=== PATIENT | female | born 1945 | race African-American/Black ===

== ENCOUNTER 2017-05-02 11:06 | Inpatient (IN) | payer BC, MEDICAID ==
[~2017-05-02] VITALS: Ht 165.1 cm; Wt 59.9 kg
[~2017-05-02 11:06] MED LIST: DONEPEZIL; FURO-152; HYDR-519
[2017-05-02] MEDS ORDERED: ACETAMINOPHEN 650MG SUPP PR STA (11:25)
[2017-05-02] MEDS ORDERED: SODIUM CHLORIDE 0.9% 1000ML BAG (SEPSIS BOLUS) IV ONE (11:30)
[2017-05-02 11:57] LABS: BASOPHILS % 0.2 % (0.0-2.0); EOSINOPHILS % 0.1 % (0.0-5.0); HEMOGLOBIN. 15.7 g/dL (12.0-16.0); LYMPHOCYTES % 10.5 % (20.0-50.0); MEAN CORPUSCULAR HEMOGLOBIN 33.6 pg (28.0-32.0); MEAN CORPUSCULAR VOLUME 100.5 fL (81.0-99.0); MONOCYTES % 11.4 % (2.0-8.0); NEUTROPHILS % 77.8 % (40.0-76.0); PLATELET 266 x1000/uL (130-400); RED BLOOD CELL COUNT 4.67 mill/uL (4.2-5.4); RED CELL DISTRIBUTION WIDTH 14.1 % (11.6-14.6)
[2017-05-02 12:12] LABS: INR 1.2; PROTHROMBIN TIME 12.4 sec (9.4-11.6)
[2017-05-02 12:14] LABS: CARBON DIOXIDE 23 mEq/L (21-32); CHLORIDE 109 mEq/L (98-107); TROPONIN I < 0.02 ng/mL (0.00-0.04)
[2017-05-02] MEDS ORDERED: PIPERACILLIN/TAZ 3.375G PREMIX 50 ML IV ONE (12:30)
[2017-05-02 13:04] LABS: GLUCOSE URINE NEGATIVE (NEGATIVE); KETONES URINE NEGATIVE (NEGATIVE); LEUKOCYTE ESTERASE URINE 3+ (NEGATIVE); NITRITE URINE NEGATIVE (NEGATIVE); OCCULT BLOOD URINE 3+ (NEGATIVE); PH URINE 5.5 (4.5-8.0); PROTEIN URINE 1+ (NEGATIVE); SPECIFIC GRAVITY URINE 1.022 (1.005-1.030)
[2017-05-02 13:05] LABS: CLARITY URINE TURBID (CLEAR); COLOR URINE DARK YELLOW (YELLOW)
[2017-05-02] MEDS ORDERED: CLONIDINE 0.1MG TABLET PO PRN (14:30)
[2017-05-02] MEDS ORDERED: CEFTRIAXONE 1 G PREMIX 50 ML IV SCH ×2 (14:30→21:00)
[2017-05-02] MEDS ORDERED: ACETAMINOPHEN 325MG TABLET PO PRN (14:30)
[2017-05-02] MEDS ORDERED: GUAIFENESIN 200MG/10ML SUGAR FREE UDC PO PRN (14:30)
[2017-05-02] MEDS ORDERED: AZITHROMYCIN 500 MG in DEXT 5% WATER 250 ML IV SCH (14:30)
[2017-05-02] MEDS ORDERED: ONDANSETRON HCL 4MG/2ML VIAL IV PRN (14:30)
[2017-05-02 20:00] VITALS: BP 130/93
[2017-05-02] MEDS ORDERED: SODIUM CHLORIDE 0.45% 1,000 ML IV SCH (20:00)
[2017-05-02] MEDS: ENOXAPARIN 40MG/0.4ML SYR SUBCUT SCH (20:54)
[2017-05-02] MEDS: AZITHROMYCIN 500 MG in DEXT 5% WATER 250 ML IV SCH (20:54)
[2017-05-02] MEDS ORDERED: FAMOTIDINE 20MG/2ML VIAL IV SCH (21:00)
[2017-05-02 21:14] VITALS: BP 130/93
[2017-05-02] MEDS: NITROGLYCERIN OINT 1GM/INCH UDPKT TD SCH (21:58)
[2017-05-02] MEDS: DEXT 5%/0.45% NACL KCL 20MEQ/L 1,000 ML IV SCH (22:39)
[2017-05-02] MEDS: PIPERACILLIN/TAZ 3.375G PREMIX 50 ML IV SCH (23:49)
[2017-05-03] VITALS: BP 114/75
[2017-05-03 04:00] VITALS: BP 129/83
[2017-05-03] MEDS: PIPERACILLIN/TAZ 3.375G PREMIX 50 ML IV SCH ×2 (06:23→14:51)
[2017-05-03] MEDS: NITROGLYCERIN OINT 1GM/INCH UDPKT TD SCH ×2 (06:23→14:51)
[2017-05-03 07:24] LABS: BG BASE EXCESS 0.2 mmol/L (-2.0-2.0); BG CARBOXYHEMOGLOBIN 0.4 % (0.5-1.5); BG DEOXYHEMOGLOBIN 4.1 % (0.0-5.0); BG FRACTION INSPIRED OXYGEN 28; BG HCO3 ACT 23.5 mmol/L (22.0-26.0); BG METHEMOGLOBIN 0.3 % (0.0-1.5); BG OXYGEN SATURATION 95.9 % (92.0-98.5); BG OXYHEMOGLOBIN 95.2 % (94.0-97.0); BG PCO2 34.2 mmHg (35.0-45.0); BG PH 7.455 (7.350-7.450); BG PO2 75.9 mmHg (75.0-100.0); BG SAMPLE SITE RIGHT RADIAL; BG TOTAL HEMOGLOBIN 13.5 g/dL (12.0-18.0); BG VENT MODE NASAL CANNULA
[2017-05-03 08:00] VITALS: BP 137/89
[2017-05-03] MEDS ORDERED: ASPIRIN 81MG EC TABLET PO SCH (09:00)
[2017-05-03 09:51] LABS: BASOPHILS % 0.1 % (0.0-2.0); EOSINOPHILS % 1.2 % (0.0-5.0); HEMATOCRIT. 42.2 % (36.0-48.0); LYMPHOCYTES % 17.5 % (20.0-50.0); MEAN CORPUSCULAR HEMOGLOBIN 33.4 pg (28.0-32.0); MEAN CORPUSCULAR VOLUME 100.6 fL (81.0-99.0); MEAN PLATELET VOLUME 8.2 fl (7.4-10.4); MONOCYTES % 13.5 % (2.0-8.0); NEUTROPHILS % 67.7 % (40.0-76.0); PLATELET 281 x1000/uL (130-400); RED CELL DISTRIBUTION WIDTH 13.9 % (11.6-14.6)
[2017-05-03] MEDS: AZITHROMYCIN 500 MG in DEXT 5% WATER 250 ML IV SCH (09:52)
[2017-05-03] MEDS: ENOXAPARIN 40MG/0.4ML SYR SUBCUT SCH (09:53)
[2017-05-03] MEDS: DEXT 5%/0.45% NACL KCL 20MEQ/L 1,000 ML IV SCH (09:56)
[2017-05-03 10:12] LABS: CARBON DIOXIDE 26 mEq/L (21-32); CHLORIDE 112 mEq/L (98-107)
[2017-05-03 12:00] VITALS: BP 159/95
[2017-05-03 18:04] VITALS: BP 155/83
== END 2017-05-03 19:30 | disposition short-term general hospital (02) | DRG 871 ==
LOC: ER 11:08 → 5WST 12:44 → EDBEDREQ 12:48 → ENRESERV 14:06 → CANRESERV 14:06 → SUPCPDRO 14:16 → EDBEDREQSVC 14:48 → ENRESERV 16:30 → EDBEDREQ 17:04
PROVIDERS: ADMIT Hospitalist; ATTEND Hospitalist
DX: A41.9 Sepsis, unspecified organism (principal); J69.0 Pneumonitis due to inhalation of food and vomit; I69.351 Hemiplegia and hemiparesis following cerebral infarction affecting right dominant side; N39.0 Urinary tract infection, site not specified; F03.90 Unspecified dementia, unspecified severity, without behavioral disturbance, psychotic disturbance, mood disturbance, and anxiety; J44.9 Chronic obstructive pulmonary disease, unspecified; I10 Essential (primary) hypertension; I69.320 Aphasia following cerebral infarction; Z88.6 Allergy status to analgesic agent
CPT/HCPCS: 36415; 36600; 71010; 80053; 81001; 82375; 82805; 83605; 83880; 84484; 85025; 85610; 87040; 87077; 87086; 87186; 93005; 93970; 96361; 96365; 99291; J0456; J0696; J1650; J2543; J3490; J7030; J7060; A4315

== ENCOUNTER 2017-07-12 11:45 | Inpatient (IN) | payer BC, MEDICAID ==
[~2017-07-12] VITALS: Ht 165.1 cm; Wt 59.0 kg
[2017-07-12] VITALS (9 sets, daily range): BP systolic 87–102; BP diastolic 39–70
[~2017-07-12 11:45] MED LIST changes: +ALBU2.5V13 IH; +BISA-81 PR; +CHOL100044 PO; +CYAN10009 PO; +LOPE2CAP PO; +POTA10TA15 PO; +WHEA1POW2 PO
[2017-07-12] MEDS ORDERED: MORPHINE SULFATE 4 MG/ML CPJ (NOT FOR IM USE) IV STA (12:10)
[2017-07-12] MEDS ORDERED: ONDANSETRON HCL 4MG/2ML VIAL IV STA (12:10)
[2017-07-12] MEDS ORDERED: VANCOMYCIN 1 G PREMIX 200 ML IV ONE (12:15)
[2017-07-12] MEDS ORDERED: LEVOFLOXACIN 750MG PREMIX 150 ML IV ONE (12:15)
[2017-07-12] MEDS ORDERED: SODIUM CHLORIDE 0.9% 1000ML BAG (SEPSIS BOLUS) IV ONE (12:15)
[2017-07-12 12:31] LABS: BG BASE EXCESS 3.2 mmol/L (-2.0-2.0); BG CARBOXYHEMOGLOBIN 0.7 % (0.5-1.5); BG DEOXYHEMOGLOBIN 2.3 % (0.0-5.0); BG HCO3 ACT 25.3 mmol/L (22.0-26.0); BG METHEMOGLOBIN 0.2 % (0.0-1.5); BG OXYGEN SATURATION 97.7 % (92.0-98.5); BG OXYHEMOGLOBIN 96.8 % (94.0-97.0); BG PCO2 31.8 mmHg (35.0-45.0); BG PH 7.518 (7.350-7.450); BG PO2 87.4 mmHg (75.0-100.0); BG SAMPLE SITE RIGHT BRACHIAL; BG TOTAL HEMOGLOBIN 16.1 g/dL (12.0-18.0); BG VENT MODE NASAL CANNULA
[2017-07-12] MEDS ORDERED: SODIUM CHLORIDE 0.9% 10ML VIAL ONE (13:49)
[2017-07-12] MEDS ORDERED: SIMETHICONE 40 MG/0.6 ML 30ML ONE ×2 (13:49→17:07)
[2017-07-12 14:25] LABS: HEMATOCRIT. 44.4 % (36.0-48.0); MEAN CORPUSCULAR HEMOGLOBIN 33.7 pg (28.0-32.0); MEAN CORPUSCULAR VOLUME 99.8 fL (81.0-99.0); PLATELET 314 x1000/uL (130-400); RED BLOOD CELL COUNT 4.45 mill/uL (4.2-5.4); RED CELL DISTRIBUTION WIDTH 14.8 % (11.6-14.6)
[2017-07-12] MEDS ORDERED: ACETAMINOPHEN 650MG SUPP PR ONE (14:30)
[2017-07-12 14:31] LABS: CLARITY URINE CLEAR (CLEAR); COLOR URINE ORANGE (YELLOW); KETONES URINE NEGATIVE (NEGATIVE); LEUKOCYTE ESTERASE URINE 1+ (NEGATIVE); NITRITE URINE NEGATIVE (NEGATIVE); OCCULT BLOOD URINE 3+ (NEGATIVE); PH URINE 5.5 (4.5-8.0); PROTEIN URINE 1+ (NEGATIVE); SPECIFIC GRAVITY URINE 1.027 (1.005-1.030)
[2017-07-12 14:34] LABS: CHLORIDE 112 mEq/L (98-107)
[2017-07-12 14:38] LABS: TROPONIN I < 0.02 ng/mL (0.00-0.04)
[2017-07-12 14:52] LABS: INR 1.1; PARTIAL THROMBOPLASTIN TIME 27.1 sec (23.4-31.0); PROTHROMBIN TIME 11.8 sec (9.4-11.6)
[2017-07-12 15:37] LABS: PLATELET ESTIMATE NORMAL
[2017-07-12] MEDS ORDERED: MIDAZOLAM HCL 5 MG/5 ML VIAL ONE (17:31)
[2017-07-12] MEDS ORDERED: FENTANYL CITRATE/PF 50MCG/ML 2ML VIAL ONE (17:31)
[2017-07-12] MEDS ORDERED: MIDAZOLAM HCL 5 MG/5 ML VIAL IV PRN (17:55)
[2017-07-12] MEDS ORDERED: MORPHINE SULFATE 2 MG/ML CPJ (NOT FOR IM USE) IV PRN (18:15)
[2017-07-12] MEDS ORDERED: SODIUM CHLORIDE 0.9% 250 ML IV ONE (21:00)
[2017-07-12] MEDS ORDERED: FAMOTIDINE 20MG/2ML VIAL IV SCH ×2 (21:00→21:15)
[2017-07-12] MEDS ORDERED: METRONIDAZOLE 500 MG PREMIX 100 ML IV SCH (22:00)
[2017-07-12] MEDS: DEXT 5%/0.45% NACL KCL 30MEQ/L 1,000 ML IV SCH (22:10)
[2017-07-13] VITALS (16 sets, daily range): BP systolic 85–124; BP diastolic 47–89
[2017-07-13] MEDS: METRONIDAZOLE 500 MG PREMIX 100 ML IV SCH ×2 (01:12→11:31)
[2017-07-13 08:30] LABS: BASOPHILS % 0.1 % (0.0-2.0); HEMATOCRIT. 38.3 % (36.0-48.0); HEMOGLOBIN. 12.8 g/dL (12.0-16.0); LYMPHOCYTES % 14.4 % (20.0-50.0); MEAN CORPUSCULAR HEMOGLOBIN 33.8 pg (28.0-32.0); MEAN CORPUSCULAR VOLUME 101.1 fL (81.0-99.0); MEAN PLATELET VOLUME 7.9 fl (7.4-10.4); MONOCYTES % 9.3 % (2.0-8.0); NEUTROPHILS % 75.2 % (40.0-76.0); PLATELET 229 x1000/uL (130-400); RED BLOOD CELL COUNT 3.79 mill/uL (4.2-5.4); RED CELL DISTRIBUTION WIDTH 15.1 % (11.6-14.6)
[2017-07-13 08:37] LABS: CHLORIDE 113 mEq/L (98-107)
[2017-07-13] MEDS ORDERED: LEVOFLOXACIN 250MG PREMIX 50 ML IV SCH (09:00)
[2017-07-13] MEDS: DEXT 5%/0.45% NACL KCL 30MEQ/L 1,000 ML IV SCH (09:23)
[2017-07-13] MEDS ORDERED: VIT B12 PO (10:17)
[2017-07-13] MEDS ORDERED: VIT D3 PO (10:17)
[2017-07-13] MEDS ORDERED: WHEA144P PO (10:17)
[2017-07-13] MEDS ORDERED: POTA10TA15 PO (10:17)
[2017-07-13 15:05] LABS: VITAMIN B12 SERUM > 2000 pg/mL (211-911)
== END 2017-07-13 18:00 | disposition short-term general hospital (02) | DRG 871 ==
LOC: ER 11:51 → 3WST 15:14 → EDBEDREQ 15:17 → SUPCPDRO 18:03 → ENRESERV 18:52 → 3WST 07-13 01:50
PROVIDERS: ADMIT Internal Medicine Critical Care Medicine; ATTEND Internal Medicine Critical Care Medicine
PROC: 0DBN8ZX Excision of Sigmoid Colon, Via Natural or Artificial Opening Endoscopic, Diagnostic (ICD-10-PCS; 2017-07-12)
PROC: 0DBP8ZX Excision of Rectum, Via Natural or Artificial Opening Endoscopic, Diagnostic (ICD-10-PCS; principal; 2017-07-12 17:00)
DX: A41.9 Sepsis, unspecified organism (principal); K56.2 Volvulus; G30.9 Alzheimer's disease, unspecified; F02.80 Dementia in other diseases classified elsewhere, unspecified severity, without behavioral disturbance, psychotic disturbance, mood disturbance, and anxiety; N39.0 Urinary tract infection, site not specified; J44.9 Chronic obstructive pulmonary disease, unspecified; Z96.659 Presence of unspecified artificial knee joint; F32.9 Major depressive disorder, single episode, unspecified; I10 Essential (primary) hypertension; Z79.899 Other long term (current) drug therapy; Z86.73 Personal history of transient ischemic attack (TIA), and cerebral infarction without residual deficits; Z87.891 Personal history of nicotine dependence; Z88.0 Allergy status to penicillin; Z87.01 Personal history of pneumonia (recurrent); Z88.6 Allergy status to analgesic agent
CPT/HCPCS: 36415; 36600; 51702; 71045; 74018; 74176; 80048; 80053; 81001; 82375; 82607; 82805; 82962; 83605; 83690; 83880; 84134; 84484; 85025; 85610; 85730; 86850; 86900; 87040; 87086; 87804; 88305; 93005; 96374; 96375; 99291; A4216; J1956; J2250; J2270; J2405; J3010; J3370; J3480; J3490; J7030; J7050; A4315